=== PATIENT | female | born 1965 | race Caucasian/White ===

== ENCOUNTER 2018-02-03 13:53 | Day surgery (SDC) | payer BC ==
[~2018-02-03 13:53] MED LIST: Midazolam 1 MG/ML 2 ML SDV ONE; Propofol 200 MG/20 ML SDV ONE; fentaNYL 100 MCG/2 ML SDV ONE
[2018-02-03] MEDS ORDERED: Sodium Chloride 0.9% 5 ML Syringe FLUSH PRN (14:00)
[2018-02-03] MEDS ORDERED: Propofol 200 MG/20 ML SDV ONE (14:39)
[2018-02-03] MEDS ORDERED: Propofol 200 MG/20 ML SDV IV ONE (15:20)
[2018-02-03] MEDS ORDERED: Midazolam 1 MG/ML 2 ML SDV IV ONE (15:20)
[2018-02-03] MEDS: Lactated Ringers 1,000 ML IV SCH (15:20)
[2018-02-03] MEDS ORDERED: fentaNYL 100 MCG/2 ML SDV IV ONE (15:20)
--- NOTE | 2018-02-03 15:23 | PCM.PN ---
- General Info Date of Service: 02/03/18 - Review of Systems Systems Review Comment:: 52-year-old female referred for her initial screening colonoscopy. She is medically stable to proceed today. She denies any recent change in her health status or any recent bowel symptoms. I discussed the proposed colonoscopy with the patient. Risks such as but not limited to bleeding and GI injury reviewed. She appears to understand and agrees to proceed. - Patient Data Vitals - Most Recent: Last Vital Signs Temp 97.1 F 02/03/18 14:29 Pulse 71 02/03/18 14:29 Resp 16 02/03/18 14:29 BP 128/82 02/03/18 14:29 Pulse Ox 98 02/03/18 14:29 Weight - Most Recent: 70.76 kg Med Orders - Current: Current Medications Lactated Ringer's (Ringers, Lactated) 1,000 mls @ 50 mls/hr IV ASDIRECTED REJI Last Admin: 02/03/18 15:20 Dose: 50 mls/hr Sodium Chloride (Syrex Flush) 5 ml FLUSH Q8HR PRN PRN Reason: Keep Vein Open Discontinued Medications Fentanyl (Sublimaze) Confirm Administered Dose 100 mcg .ROUTE .STK-MED ONE Stop: 02/03/18 13:49 Midazolam HCl (Versed 1 Mg/Ml) Confirm Administered Dose 2 mg .ROUTE .STK-MED ONE Stop: 02/03/18 13:48 Propofol (Diprivan 20 Ml) Confirm Administered Dose 200 mg .ROUTE .STK-MED ONE Stop: 02/03/18 13:49 - Problem List Review Problem List Initiated/Reviewed/Updated: Yes - My Orders Last 24 Hours: My Active Orders 02/03/18 14:00 Peripheral IV Care [RC] . DIRECTED HCG QUALITATIVE,URINE [URCHEM] Routine Lactated Ringers [Ringers, Lactated] 1,000 ml IV ASDIRECTED Sodium Chloride 0.9% [Syrex Flush] 5 ml FLUSH Q8HR PRN Peripheral IV Insertion Adult [OM.PC] Routine 02/03/18 14:30 Patient to Empty Bladder [RC] ASDIRECTED 02/03/18 14:45 Verify Patient Consent Obtain [RC] ASDIRECTED 02/03/18 Breakfast Nothing Per Oral Diet [DIET] - Assessment Assessment:: Colon cancer screening - Plan Plan:: Colonoscopy
--- NOTE | 2018-02-03 15:58 | PCM.OPNOTE ---
- General Post-Op/Procedure Note Date of Surgery/Procedure: 02/03/18 Operative Procedure(s): Colonoscopy Findings: Normal Colon Pre Op Diagnosis: Colon Cancer Screening Post-Op Diagnosis: Normal Colon Anesthesia Technique: MAC Primary Surgeon: Trip Sapp Pathology: none Output, Urine Amount: 0 EBL in mLs: 0 Complications: None Condition: Good
[2018-02-03 16:59] VITALS: BP 112/69
--- NOTE | 2018-02-04 01:27 | OR ---
DATE OF SURGERY: 02/03/2018 SURGEON: Trip Sapp MD PREOPERATIVE DIAGNOSIS: Colon cancer screening. POSTOPERATIVE DIAGNOSIS: Normal colon. OPERATION PERFORMED: Colonoscopy. INDICATIONS FOR SURGERY: This 52-year-old female presents for her initial screening colonoscopy. She denies any recent change in bowel habits. FINDINGS: The patient's colon appears normal. No polyps or other abnormalities were seen. PROCEDURE: The patient was taken to the operating room. She was given intravenous sedation, and with her in the left lateral decubitus position, digital rectal exam was performed showing the rectal masses. The Olympus colonoscope was inserted into the rectum. Retroflexed examination of the rectal canal was performed. The scope was then carefully advanced under direct visualization through the entire length of the colon until cecum was reached. Cecal acquisition was confirmed by noting the normal internal cecal anatomy including the appendiceal orifice and ileocecal valve. The light was noted to transilluminate the abdominal wall in the right lower quadrant as well. The ileocecal valve was cannulated and the terminal ileum was examined and it also appeared normal. The scope was then slowly withdrawn, sequentially re-examining the colonic segments until the entire colon and rectum had been fully examined. The scope was removed and the patient was taken from the operating room in satisfactory condition. ESTIMATED BLOOD LOSS: Zero. COMPLICATIONS: None. PROGNOSIS: Good. /[id number]/MODL
== END 2018-02-03 16:55 | disposition home or self-care (01) ==
LOC: KA.SDS 13:53
PROVIDERS: ATTEND Surgery
DX: Z12.11 Encounter for screening for malignant neoplasm of colon (principal); H61.23 Impacted cerumen, bilateral; E04.9 Nontoxic goiter, unspecified; K52.9 Noninfective gastroenteritis and colitis, unspecified; K64.9 Unspecified hemorrhoids; I10 Essential (primary) hypertension; Z79.899 Other long term (current) drug therapy; Z98.890 Other specified postprocedural states; Z87.891 Personal history of nicotine dependence
CPT/HCPCS: J2250; J2704; J3010; J7120

== ENCOUNTER 2019-03-09 05:10 | Inpatient (IN) | payer BC ==
[2019-03-09] MEDS: Sodium Chloride 0.9% 1,000 ML IV ONE (05:23)
[2019-03-09] MEDS: Ondansetron 4 MG/2 ML SDV IVPUSH ONE (05:25)
--- NOTE | 2019-03-09 05:34 | EDM.PDOC ---
ED HPI GENERAL MEDICAL PROBLEM - General Chief Complaint: Gastrointestinal Problem Stated Complaint: n/v/d Time Seen by Provider: 03/09/19 05:20 Source of Information: Reports: Patient History Limitations: Reports: No Limitations - History of Present Illness INITIAL COMMENTS - FREE TEXT/NARRATIVE: 53 YO WF presents to ER with nausea/vomiting/diarrhea which began 3 hours ago. Pt reports she woke and felt nauseated followed by profuse watery stools. Pt reports she continued to have intractable diarrhea and felt weak prompting her ER visit. Pt denies fever/chills or abdominal pain. Pt reports a mild burning sensation at her epigastrium but denies shortness of breath, diaphoresis or syncope. Pt reports she was recently on a course of penicillin for a dental extraction and a course of cipro for a recent UTI. Both courses of antibiotics were taken within the last 3-4 weeks. Onset: Today Onset Date: 03/09/19 Onset Time: 02:30 Location: Reports: Abdomen Quality: Reports: Burning Severity: Mild Improves with: Reports: None Worsens with: Reports: None Associated Symptoms: Reports: Malaise, Nausea/Vomiting, Weakness. Denies: Chest Pain, Diaphoresis, Fever/Chills, Headaches, Shortness of Breath, Syncope - Related Data Allergies Allergy/AdvReac Type Severity Reaction Status Date / Time No Known Drug Allergies Allergy Other Verified 03/09/19 05:45 Home Meds: Home Meds Calcium Carbonate [Calcium] 600 mg PO BID 01/28/18 [History] Cholecalciferol (Vitamin D3) [Vitamin D3] 1 cap PO DAILY 01/28/18 [History] Lisinopril/Hydrochlorothiazide [Lisinopril-Hctz 20-25 mg Tab] 1 tab PO DAILY 06/09 [History] Past Medical History Cardiovascular History: Reports: Hypertension Gastrointestinal History: Reports: Helicobacter Pylori Genitourinary History: Reports: UTI, Recurrent 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: Reports: - Past Surgical History Other Female Surgeries/Procedures: Lumpectomy to left breast Social & Family History - Family History Cardiac: Reports: High Cholesterol, Hypertension, OR Respiratory: Reports: Asthma : Reports: None OBGYN: Reports: None Musculoskeletal: Reports: None Neurological: Reports: CVA Oncologic: Reports: Brain, Esophageal - Caffeine Use Caffeine Use: Reports: Coffee ED ROS GENERAL - Review of Systems Review Of Systems: See Below Constitutional: Reports: Malaise, Weakness, Fatigue HEENT: Reports: No Symptoms Respiratory: Reports: No Symptoms Cardiovascular: Reports: No Symptoms Endocrine: Reports: No Symptoms GI/Abdominal: Reports: Abdominal Pain, Anorexia, Diarrhea, Nausea, Vomiting : Denies: Dysuria, Flank Pain, Frequency, Hematuria, Urgency Musculoskeletal: Reports: No Symptoms Skin: Reports: Pallor, Dryness Neurological: Reports: No Symptoms Psychiatric: Reports: No Symptoms Hematologic/Lymphatic: Reports: No Symptoms Immunologic: Reports: No Symptoms ED EXAM, GI/ABD - Physical Exam Exam: See Below Exam Limited By: No Limitations General Appearance: Alert, WD/WN, No Apparent Distress Throat/Mouth: Normal Inspection, Normal Lips, Normal Teeth, Normal Gums, Normal Oropharynx, Normal Voice, No Airway Compromise Head: Atraumatic, Normocephalic Neck: Normal Inspection, Supple, Non-Tender, Full Range of Motion Respiratory/Chest: No Respiratory Distress, Lungs Clear, Normal Breath Sounds, No Accessory Muscle Use, Chest Non-Tender Cardiovascular: Normal Peripheral Pulses, Regular Rate, Rhythm, No Edema, No Gallop, No JVD, No Murmur, No Rub GI/Abdominal Exam: Normal Bowel Sounds, Soft, Non-Tender, No Organomegaly, No Distention, No Abnormal Bruit, No Mass Back Exam: Normal Inspection, Full Range of Motion, NT Extremities: Normal Inspection, Normal Range of Motion, Non-Tender, Normal Capillary Refill, No Pedal Edema Neurological: Alert, Oriented, CN II-XII Intact, Normal Cognition, Normal Gait, Normal Reflexes, No Motor/Sensory Deficits Psychiatric: Normal Affect, Normal Mood Skin Exam: Warm, Dry, Intact, Normal Color, No Rash Lymphatic: No Adenopathy EKG INTERPRETATION EKG Date: 03/09/19 Time: 05:51 Rhythm: NSR Rate (Beats/Min): 66 [place]: Normal P-Wave: Present QRS: Normal ST-T: Normal QT: Prolonged Comparison: NA - No Prior EKG Course - Vital Signs Last Recorded V/S: Last Vital Signs Temp 36.3 C 03/09/19 05:15 Pulse 66 03/09/19 05:45 Resp 18 03/09/19 05:45 BP 98/60 03/09/19 05:45 Pulse Ox 94 L 03/09/19 05:45 - Orders/Labs/Meds Orders: Active Orders 24 hr Category Date Time Status Abdomen Pelvis w Cont [CT] Stat Exams 03/09/19 06:05 Ordered Clostridium Difficile [CDIFF TOX A+B] [OP] Stat Lab 03/09/19 05:35 Ordered OVA & PARASITES BY IMMUNOASSAY [MREF] Stat Lab 03/09/19 06:20 Ordered STOOL CULTURE/SHIGA TOXIN [MREF] Stat Lab 03/09/19 06:20 Ordered URINALYSIS W/MICROSCOPIC [UA W/MICROSCOPIC] [URIN] Stat Lab 03/09/19 05:34 Ordered WBC, STOOL [OP] Stat Lab 03/09/19 06:20 Ordered Sodium Chloride 0.9% with KCl [Normal Saline with 40 Med 03/09/19 06:30 Ordered mEq KCl] 1,000 ml IV ASDIRECTED Isolation [COMM] Routine Oth 03/09/19 06:34 Ordered EKG 12 Lead [EK] Routine Ther 03/09/19 05:37 Ordered Medication Orders Potassium Chloride/Sodium Chloride (Normal Saline With 40 Meq Kcl) 1,000 mls @ 125 mls/hr IV ASDIRECTED REJI Labs: Laboratory Tests 03/09/19 03/09/19 Range/Units 05:25 05:25 WBC 18.58 H D (5.00-10.00) 10^3/uL RBC 5.31 (3.80-5.50) 10^6/uL Hgb 16.2 H (12.0-16.0) g/dL Hct 45.2 (37.0-47.0) % MCV 85.1 (82.0-92.0) fL MCH 30.5 (27.0-31.0) pg MCHC 35.8 (32.0-36.0) g/dL RDW 12.7 (11.5-14.5) % Plt Count 322 (150-400) 10^3/uL MPV 9.7 (7.4-10.4) fL Immature Gran % (Auto) 0.2 (0.0-5.0) % Neut % (Auto) 79.4 H (50.0-70.0) % Lymph % (Auto) 12.9 L (20.0-40.0) % [place] % (Auto) 6.6 (2.0-8.0) % Eos % (Auto) 0.8 L (1.0-3.0) % Baso % (Auto) 0.1 (0.0-1.0) % Immature Gran # (Auto) 0.04 (0.00-0.50) 10^3/uL Neut # (Auto) 14.76 H (2.50-7.00) 10^3/uL Lymph # (Auto) 2.40 (1.00-4.00) 10^3/uL [place] # (Auto) 1.22 H (0.10-0.80) 10^3/uL Eos # (Auto) 0.14 (0.10-0.30) 10^3/uL Baso # (Auto) 0.02 (0.00-0.10) 10^3/uL Sodium 140 (136-145) mmol/L Potassium 2.6 L (3.3-5.3) mmol/L Chloride 102 (98-115) mmol/L Carbon Dioxide 22.4 (21.0-32.0) mmol/L Anion Gap 18.2 H (5-15) mmol/L BUN 23 (6-25) mg/dL Creatinine 0.64 (0.51-1.17) mg/dL Est Cr Clr Drug Dosing 96.58 mL/min Estimated GFR (MDRD) > 60 mL/min Glucose 173 H (75 - 99) mg/dL Calcium 9.9 (8.7-10.3) mg/dL Magnesium 2.2 (1.8-2.4) mg/dL Total Bilirubin 0.7 (0.2-1.0) mg/dL AST 26 (15-37) U/L ALT 28 (12-78) U/L Alkaline Phosphatase 65 (46-116) IU/L Total Protein 7.9 (6.4-8.2) g/dL Albumin 4.17 (3.00-4.80) g/dL Lipase 176 (73-393) U/L Meds: Medications Generic Name Dose Route Start Last Admin Trade Name Freq PRN Reason Stop Dose Admin Potassium Chloride/Sodium Chloride 1,000 mls @ 125 mls/hr 03/09/19 06:30 Normal Saline With 40 Meq Kcl IV ASDIRECTED REJI Discontinued Medications Generic Name Dose Route Start Last Admin Trade Name Freq PRN Reason Stop Dose Admin Sodium Chloride Confirm 03/09/19 05:23 03/09/19 05:49 Normal Saline Administered 03/09/19 05:24 Not Given Dose 1,000 mls @ as directed .ROUTE .STK-MED ONE Sodium Chloride 1,000 mls @ 999 mls/hr 03/09/19 05:20 03/09/19 05:23 Normal Saline IV 03/09/19 06:20 999 mls/hr .BOLUS ONE Administration Ondansetron HCl Confirm 03/09/19 05:23 03/09/19 05:49 Zofran Administered 03/09/19 05:24 Not Given Dose 4 mg .ROUTE .STK-MED ONE Ondansetron HCl 4 mg 03/09/19 05:20 03/09/19 05:25 Zofran IVPUSH 03/09/19 05:21 4 mg ONETIME ONE Administration Departure - Departure Time of Disposition: 06:40 Disposition: Admitted As Inpatient 64 Condition: Serious Clinical Impression: Gastroenteritis, Hypokalemia due to loss of potassium, Dehydration Leukocytosis Qualifiers: Leukocytosis type: unspecified Qualified Code(s): D72.829 - Elevated white blood cell count, unspecified - Discharge Information Forms: ED Department Discharge Additional Instructions: 1. Admit to Dr Josephine Gilbert 2. NS with 40Kmeq @125cc/hr 3. Zofran 4mg IV 4. await CT results, stool panel, UA- pending 5. Antibiotics PRN per Dr Gilbert 6. Supportive care - My Orders Last 24 Hours: My Active Orders 03/09/19 05:34 URINALYSIS W/MICROSCOPIC [UA W/MICROSCOPIC] [URIN] Stat 03/09/19 05:35 Clostridium Difficile [CDIFF TOX A+B] [OP] Stat 03/09/19 05:37 EKG 12 Lead [EK] Routine 03/09/19 06:05 Abdomen Pelvis w Cont [CT] Stat 03/09/19 06:20 OVA & PARASITES BY IMMUNOASSAY [MREF] Stat STOOL CULTURE/SHIGA TOXIN [MREF] Stat WBC, STOOL [OP] Stat 03/09/19 06:30 Sodium Chloride 0.9% with KCl [Normal Saline with 40 mEq KCl] 1,000 ml IV ASDIRECTED 03/09/19 06:34 Isolation [COMM] Routine - Assessment/Plan Last 24 Hours: My Active Orders 03/09/19 05:34 URINALYSIS W/MICROSCOPIC [UA W/MICROSCOPIC] [URIN] Stat 03/09/19 05:35 Clostridium Difficile [CDIFF TOX A+B] [OP] Stat 03/09/19 05:37 EKG 12 Lead [EK] Routine 03/09/19 06:05 Abdomen Pelvis w Cont [CT] Stat 03/09/19 06:20 OVA & PARASITES BY IMMUNOASSAY [MREF] Stat STOOL CULTURE/SHIGA TOXIN [MREF] Stat WBC, STOOL [OP] Stat 03/09/19 06:30 Sodium Chloride 0.9% with KCl [Normal Saline with 40 mEq KCl] 1,000 ml IV ASDIRECTED 03/09/19 06:34 Isolation [COMM] Routine Assessment:: 1. Hypokalemia 2. Dehydration 3. Prolonged QT 4. Possible Infectious diarrhea 5. Leukocytosis 6. Gastroenteritis Plan: 1. Admit to Dr Josephine Gilbert 2. NS with 40Kmeq @125cc/hr 3. Zofran 4mg IV 4. await CT results, stool panel, UA- pending 5. Antibiotics PRN per Dr Gilbert 6. Supportive care
[2019-03-09] MEDS: Ondansetron 4 MG/2 ML SDV ONE (05:49)
[2019-03-09] MEDS: Sodium Chloride 0.9% 1,000 ML ONE (05:49)
[2019-03-09 06:19] LABS: ANION GAP 18.2 mmol/L (5-15); CHLORIDE,CL 102 mmol/L (98-115); SODIUM,NA 140 mmol/L (136-145)
[2019-03-09] MEDS ORDERED: Ondansetron 4 MG/2 ML SDV IV PRN (06:44)
[2019-03-09] MEDS: Sodium Chloride 0.9% with KCl 1,000 ML IV SCH (07:30)
--- NOTE | 2019-03-09 08:04 | CT ---
[id number] CT/CT Abdomen Pelvis W IV EXAM: CT Abdomen Pelvis W IV CLINICAL DATA: ABDOMINAL PAIN. COMPARISON STUDY: June 01, 2018. FINDINGS: Small subcentimeter hypodensities scattered throughout the liver nonspecific and too small to characterize. Liver is otherwise unremarkable. Subtle area of hypoenhancement in the superior aspect of the right kidney. This measures approximately 14 mm in diameter (series 2 image 56, series 4 image 42, and series 5 image 94). No evidence of urinary tract obstruction. Urinary bladder is unremarkable. No bowel obstruction or inflammation. Appendix is normal. No lymphadenopathy, free fluid, or pneumoperitoneum. Uterus and adnexal regions are unremarkable. Scattered changes of mild spondylosis in the spine. No fracture or osseous lesion. IMPRESSION: Small focal area of hypoenhancement in the right kidney. Finding is nonspecific. Correlate with UA for evidence of pyelonephritis or urinary tract infection. Otherwise, no significant abnormality in the abdomen or pelvis. Buddy Marquez MD 03/09/19 0803 Thank you for allowing us to participate in the care of your patient.
[2019-03-09] MEDS ORDERED: Iopamidol 612 MG/ML 100 ML Bottle IVPUSH ONE (08:59)
[2019-03-09] MEDS ORDERED: Sodium Chloride 0.9% 50 ML IV SCH (09:00)
[2019-03-09] MEDS: Iopamidol 612 MG/ML 100 ML Bottle IVPUSH ONE (09:06)
[2019-03-09] MEDS: Sodium Chloride 0.9% 50 ML IV SCH (09:10)
--- NOTE | 2019-03-09 15:39 | PCM.PN ---
- General Info Date of Service: 03/09/19 Admission Dx/Problem (Free Text): Vomiting and diarrhea. - Review of Systems Systems Review Comment:: Radha was admitted earlier this morning with abrupt onset of vomiting and diarrhea. She states that on 03/08/19 it was a normal day. Around 3PM she had a cup of coffee that "didn't sit very well with me" but she was feeling better by supper and had a salad and some breadsticks for supper. No food she ate throughout the day was questionable. No recent travel. She states when she went to bed her stomach "hurt" a little bit "I thought it was just acid". She woke up at 0230 on 03/09 and had a bad taste in her mouth so tried to drink some water and then got nauseated and vomited. She then promptly got diarrhea, watery and at the end "almost clear". She kept trying to drink water to stay hydrated but she kept vomiting that up, although her emesis amount was small. She was sitting on her toilet and felt like she was going to pass out and so she called to her and he suggested calling EMS but she said tole him to just wait for a bit, then she recalls waking up and him over her in the bathroom stating she had fainted. At that time she agreed to go to the ER for further evaluation. She arrived by private vehicle. Labs showed a WBC of 18 with a left shift, 80% neutrophils. Potassium was low at 2.9, UA with positive ketones but negative for infection. Of note, she has been on PCN this past month for a dental infection as well as ciprofloxacin for a urine infection. There was concern about C. diff. She was given IVF's and zofran in the ER and this helped her symptoms. She had 3-4 episodes of diarrhea at home but nothing had come in the hospital. She was admitted around 0630. She had normal saline with 40 mEq of KCl in the fluids running at 125 cc per hour but her vein hurt and so this was decreased to 100 cc per hour. She has no nausea. She had one small loose stool that "I had to work at getting out" to get for a stool sample. This was negative for C. diff. She tolerated toast earlier this morning and she would like to try more for supper. Will D/C telemetry, this was started for prolonged QT seen in the ER but she has had no events. Will D/C isolation as C. diff is negative. Will change diet to a BRAT diet. Anticipate discharge to home tomorrow. This is most consistent with an abrupt onset of a viral gastroenteritis that is self limited. - Patient Data Vitals - Most Recent: Last Vital Signs Temp 97.8 F 03/09/19 11:00 Pulse 75 03/09/19 11:00 Resp 16 03/09/19 11:00 BP 107/71 03/09/19 11:00 Pulse Ox 96 03/09/19 11:00 Weight - Most Recent: 161 lb 4.8 oz I&O - Last 24 Hours: Intake & Output 03/09/19 03/09/19 03/09/19 06:59 14:59 22:59 Intake Total 920 Balance 920 Lab Results Last 24 Hours: Laboratory Results - last 24 hr 03/09/19 03/09/19 03/09/19 Range/Units 05:25 05:25 06:55 WBC 18.58 H D (5.00-10.00) 10^3/uL RBC 5.31 (3.80-5.50) 10^6/uL Hgb 16.2 H (12.0-16.0) g/dL Hct 45.2 (37.0-47.0) % MCV 85.1 (82.0-92.0) fL MCH 30.5 (27.0-31.0) pg MCHC 35.8 (32.0-36.0) g/dL RDW 12.7 (11.5-14.5) % Plt Count 322 (150-400) 10^3/uL MPV 9.7 (7.4-10.4) fL Immature Gran % (Auto) 0.2 (0.0-5.0) % Neut % (Auto) 79.4 H (50.0-70.0) % Lymph % (Auto) 12.9 L (20.0-40.0) % [place] % (Auto) 6.6 (2.0-8.0) % Eos % (Auto) 0.8 L (1.0-3.0) % Baso % (Auto) 0.1 (0.0-1.0) % Immature Gran # (Auto) 0.04 (0.00-0.50) 10^3/uL Neut # (Auto) 14.76 H (2.50-7.00) 10^3/uL Lymph # (Auto) 2.40 (1.00-4.00) 10^3/uL [place] # (Auto) 1.22 H (0.10-0.80) 10^3/uL Eos # (Auto) 0.14 (0.10-0.30) 10^3/uL Baso # (Auto) 0.02 (0.00-0.10) 10^3/uL Sodium 140 (136-145) mmol/L Potassium 2.6 L (3.3-5.3) mmol/L Chloride 102 (98-115) mmol/L Carbon Dioxide 22.4 (21.0-32.0) mmol/L Anion Gap 18.2 H (5-15) mmol/L BUN 23 (6-25) mg/dL Creatinine 0.64 (0.51-1.17) mg/dL Est Cr Clr Drug Dosing 96.58 mL/min Estimated GFR (MDRD) > 60 mL/min Glucose 173 H (75 - 99) mg/dL Calcium 9.9 (8.7-10.3) mg/dL Magnesium 2.2 (1.8-2.4) mg/dL Total Bilirubin 0.7 (0.2-1.0) mg/dL AST 26 (15-37) U/L ALT 28 (12-78) U/L Alkaline Phosphatase 65 (46-116) IU/L Total Protein 7.9 (6.4-8.2) g/dL Albumin 4.17 (3.00-4.80) g/dL Lipase 176 (73-393) U/L Specimen Type Urinvoid Urine Color Yellow (YELLOW) Urine Appearance Slightly cloudy H (CLEAR) Urine pH 6.0 (5.0-9.0) Ur Specific [place] >= 1.030 (1.005-1.030) Urine Protein 100 H (NEGATIVE) mg/dL Urine Glucose (UA) Negative (NEGATIVE) mg/dL Urine Ketones 15 H (NEGATIVE) mg/dL Urine Occult Blood Trace-lysed H (NEGATIVE) Urine Nitrite Negative (NEGATIVE) Urine Bilirubin Small H (NEGATIVE) Urine Urobilinogen 0.2 (0.2-1.0) E.U./dL Ur Leukocyte Esterase Negative (NEGATIVE) Urine RBC 0-5 (0-5) /HPF Urine WBC 5-10 H (0-5) /HPF Ur Epithelial Cells Few /LPF Urine Bacteria Few (NONE TO FEW) /HPF Hyaline Casts Few H (NEGATIVE) /LPF Urine Mucus Moderate H (NEGATIVE) /LPF [place] Results Last 24 Hours: Microbiology 03/09/19 12:45 Clostridium difficile Toxin A & B - Final Stool / Feces NEGATIVE CDIFF TOXIN REFERENCE RANGE: NEGATIVE 03/09/19 12:45 Stool for WBCs - Final Stool / Feces NO WBC SEEN REFERENCE RANGE: NO WBC SEEN Med Orders - Current: Current Medications Acetaminophen (Tylenol) 650 mg PO Q4H PRN PRN Reason: Pain (Mild 1-3)/fever Potassium Chloride/Sodium Chloride (Normal Saline With 40 Meq Kcl) 1,000 mls @ 125 mls/hr IV ASDIRECTED [facility] Last Infusion: 03/09/19 10:58 Dose: 100 mls/hr Sodium Chloride (Normal Saline) 50 mls @ 200 mls/min IV ASDIRECTED [facility] Last Admin: 03/09/19 09:10 Dose: 200 mls/min Ondansetron HCl (Zofran) 4 mg IV Q4H PRN PRN Reason: Nausea/Vomiting Discontinued Medications Sodium Chloride (Normal Saline) Confirm Administered Dose 1,000 mls @ as directed .ROUTE .STK-MED ONE Stop: 03/09/19 05:24 Last Admin: 03/09/19 05:49 Dose: Not Given Sodium Chloride (Normal Saline) 1,000 mls @ 999 mls/hr IV .BOLUS ONE Stop: 03/09/19 06:20 Last Admin: 03/09/19 05:23 Dose: 999 mls/hr Iopamidol (Isovue-300 (61%)) 100 ml IVPUSH ONETIME ONE Stop: 03/09/19 07:00 Last Admin: 03/09/19 09:06 Dose: 75 ml Ondansetron HCl (Zofran) Confirm Administered Dose 4 mg .ROUTE .STK-MED ONE Stop: 03/09/19 05:24 Last Admin: 03/09/19 05:49 Dose: Not Given Ondansetron HCl (Zofran) 4 mg IVPUSH ONETIME ONE Stop: 03/09/19 05:21 Last Admin: 03/09/19 05:25 Dose: 4 mg - Exam General: Alert, Oriented, Cooperative, No Acute Distress Lungs: Clear to Auscultation, Normal Respiratory Effort Cardiovascular: Regular Rate, Regular Rhythm, No Murmurs GI/Abdominal Exam: Normal Bowel Sounds - Problem List & Annotations (1) Vomiting and diarrhea SNOMED Code(s): 468517750 Code(s): R11.10 - VOMITING, UNSPECIFIED; R19.7 - DIARRHEA, UNSPECIFIED Status: Acute Current Visit: Yes (2) Hypotension due to hypovolemia SNOMED Code(s): 93682445 Code(s): I95.89 - OTHER HYPOTENSION; E86.1 - HYPOVOLEMIA Status: Acute Current Visit: Yes (3) Dehydration SNOMED Code(s): 61087311 Code(s): E86.0 - DEHYDRATION Status: Acute Current Visit: No (4) Gastroenteritis SNOMED Code(s): 73521536 Code(s): K52.9 - NONINFECTIVE GASTROENTERITIS AND COLITIS, UNSPECIFIED Status: Acute Current Visit: No (5) Hypokalemia due to loss of potassium SNOMED Code(s): 35285369 Code(s): E87.6 - HYPOKALEMIA Status: Acute Current Visit: No (6) Leukocytosis SNOMED Code(s): 997693230, 873841108 Code(s): D72.829 - ELEVATED WHITE BLOOD CELL COUNT, UNSPECIFIED Status: Acute Current Visit: No Qualifiers: Leukocytosis type: unspecified Qualified Code(s): D72.829 - Elevated white blood cell count, unspecified - Problem List Review Problem List Initiated/Reviewed/Updated: Yes - My Orders Last 24 Hours: My Active Orders 03/09/19 13:36 Cardiac Monitoring Discontinue [RC] Click to Edit 03/09/19 Dinner BRAT Diet [DIET] - Assessment Assessment:: See HPI - Plan Plan:: See HPI
[2019-03-09] MEDS: Acetaminophen 325 MG Tab PO PRN (17:04)
[2019-03-09] MEDS: Melatonin 3 MG Tab PO PRN (21:51)
[2019-03-10 06:10] VITALS: BP 122/72
[2019-03-10 07:47] LABS: ANION GAP 12.2 mmol/L (5-15); CHLORIDE,CL 110 mmol/L (98-115); SODIUM,NA 144 mmol/L (136-145)
--- NOTE | 2019-03-10 09:22 | PCM.DCSUM1 ---
Discharge Summary - Hospital Course Free Text/Narrative:: Radha was admitted on 03/09/19 with abrupt onset of vomiting and diarrhea. She states that on 03/08/19 it was a normal day. Around 3PM she had a cup of coffee that "didn't sit very well with me" but she was feeling better by supper and had a salad and some breadsticks for supper. No food she ate throughout the day was questionable. No recent travel. She states when she went to bed her stomach "hurt" a little bit "I thought it was just acid". She woke up at 0230 on 03/09 and had a bad taste in her mouth so tried to drink some water and then got nauseated and vomited. She then promptly got diarrhea, watery and at the end "almost clear". She kept trying to drink water to stay hydrated but she kept vomiting that up, although her emesis amount was small. She was sitting on her toilet and felt like she was going to pass out and so she called to her and he suggested calling EMS but she said tole him to just wait for a bit, then she recalls waking up and him over her in the bathroom stating she had fainted. At that time she agreed to go to the ER for further evaluation. She arrived by private vehicle. Labs showed a WBC of 18 with a left shift, 80% neutrophils. Potassium was low at 2.9, UA with positive ketones but negative for infection. Of note, she has been on PCN this past month for a dental infection as well as ciprofloxacin for a urine infection. There was concern about C. diff. She was given IVF's and zofran in the ER and this helped her symptoms. She had 3-4 episodes of diarrhea at home but nothing had come in the hospital. She was admitted around 0630 on 03/09. She had normal saline with 40 mEq of KCl in the fluids running at 125 cc per hour but her vein hurt and so this was decreased to 100 cc per hour. She has no nausea. She had one small loose stool that "I had to work at getting out" to get for a stool sample. This was negative for C. diff. She had her potassium rechecked at 5PM on 03/09 and it was up to 4.8. IVF's were discontinued as she was drinking normally and was no longer nauseated. She was initially hypotensive in the ER but this improved after IVF's. She has had no nausea or vomiting since admission. She has tolerated the BRAT diet. She has had no BM since her small one to leave for the stool sample on . She feels ready for discharge. Admission Diagnoses: Vomiting and Diarrhea Hypokalemia Hypotension Neutrophilic Leukocytosis Discharge Diagnoses: Vomiting and Diarrhea, most consistent with viral gastroenteritis, C. Diff ruled out. Hypokalemia. Resolved. Hypotension. Resolved. Neutrophilic Leukocytosis, resolved, most likely related to acute vomiting and hemoconcentration. Diagnosis: Stroke: No Modified Cecil Scale: No Symptoms at All Modified Cecil Scale Score: 0 - Discharge Data Discharge Date: 03/10/19 Discharge Disposition: Home, Self-Care 01 Condition: Good - Discharge Diagnosis/Problem(s) (1) Vomiting and diarrhea SNOMED Code(s): 621296379 ICD Code: R11.10 - VOMITING, UNSPECIFIED; R19.7 - DIARRHEA, UNSPECIFIED Status: Acute Current Visit: Yes (2) Hypotension due to hypovolemia SNOMED Code(s): 20489078 ICD Code: I95.89 - OTHER HYPOTENSION; E86.1 - HYPOVOLEMIA Status: Acute Current Visit: Yes (3) Dehydration SNOMED Code(s): 09870698 ICD Code: E86.0 - DEHYDRATION Status: Acute Current Visit: No (4) Gastroenteritis SNOMED Code(s): 10821415 ICD Code: K52.9 - NONINFECTIVE GASTROENTERITIS AND COLITIS, UNSPECIFIED Status: Acute Current Visit: No (5) Hypokalemia due to loss of potassium SNOMED Code(s): 59523845 ICD Code: E87.6 - HYPOKALEMIA Status: Acute Current Visit: No (6) Leukocytosis SNOMED Code(s): 415279589, 767633801 ICD Code: D72.829 - ELEVATED WHITE BLOOD CELL COUNT, UNSPECIFIED Status: Acute Current Visit: No Qualifiers: Leukocytosis type: unspecified Qualified Code(s): D72.829 - Elevated white blood cell count, unspecified - Patient Instructions Diet: Regular Diet as Tolerated Activity: As Tolerated - Discharge Plan *PRESCRIPTION DRUG MONITORING PROGRAM REVIEWED*: Not Applicable *COPY OF PRESCRIPTION DRUG MONITORING REPORT IN PATIENT ZAKI: Not Applicable Home Medications: Home Meds Calcium Carbonate [Calcium] 600 mg PO BID 01/28/18 [History] Cholecalciferol (Vitamin D3) [Vitamin D3] 1 cap PO DAILY 01/28/18 [History] Lisinopril/Hydrochlorothiazide [Lisinopril-Hctz 20-25 mg Tab] 1 tab PO DAILY 06/09 [History] Forms: ED Department Discharge - Discharge Summary/Plan Comment DC Time >30 min.: No - General Info Date of Service: 03/10/19 - Patient Data Vitals - Most Recent: Last Vital Signs Temp 98.4 F 03/10/19 06:09 Pulse 66 03/10/19 06:09 Resp 18 03/10/19 06:09 BP 122/72 03/10/19 06:09 Pulse Ox 98 03/10/19 08:55 Weight - Most Recent: 161 lb 4.8 oz I&O - Last 24 hours: Intake & Output 03/09/19 03/10/19 03/10/19 22:59 06:59 14:59 Intake Total 2000 450 Output Total 600 200 Balance 1400 250 Lab Results - Last 24 hrs: Laboratory Results - last 24 hr 03/09/19 03/10/19 03/10/19 Range/Units 17:00 07:15 07:15 WBC 5.40 D (5.00-10.00) 10^3/uL RBC 4.42 (3.80-5.50) 10^6/uL Hgb 13.0 D (12.0-16.0) g/dL Hct 38.6 (37.0-47.0) % MCV 87.3 (82.0-92.0) fL MCH 29.4 (27.0-31.0) pg MCHC 33.7 (32.0-36.0) g/dL RDW 13.0 (11.5-14.5) % Plt Count 251 (150-400) 10^3/uL MPV 9.5 (7.4-10.4) fL Immature Gran % (Auto) 0.0 (0.0-5.0) % Neut % (Auto) 56.5 (50.0-70.0) % Lymph % (Auto) 35.0 (20.0-40.0) % [place] % (Auto) 6.1 (2.0-8.0) % Eos % (Auto) 2.2 (1.0-3.0) % Baso % (Auto) 0.2 (0.0-1.0) % Immature Gran # (Auto) 0.00 (0.00-0.50) 10^3/uL Neut # (Auto) 3.05 (2.50-7.00) 10^3/uL Lymph # (Auto) 1.89 (1.00-4.00) 10^3/uL [place] # (Auto) 0.33 (0.10-0.80) 10^3/uL Eos # (Auto) 0.12 (0.10-0.30) 10^3/uL Baso # (Auto) 0.01 (0.00-0.10) 10^3/uL Sodium 144 (136-145) mmol/L Potassium 4.8 D 4.2 (3.3-5.3) mmol/L Chloride 110 (98-115) mmol/L Carbon Dioxide 26.0 (21.0-32.0) mmol/L Anion Gap 12.2 (5-15) mmol/L BUN 10 (6-25) mg/dL Creatinine 0.63 (0.51-1.17) mg/dL Est Cr Clr Drug Dosing 98.12 mL/min Estimated GFR (MDRD) > 60 mL/min Glucose 103 H (75 - 99) mg/dL Calcium 8.6 L (8.7-10.3) mg/dL BETTY Results - Last 24 hrs: Microbiology 03/09/19 12:45 Clostridium difficile Toxin A & B - Final Stool / Feces NEGATIVE CDIFF TOXIN REFERENCE RANGE: NEGATIVE 03/09/19 12:45 Stool for WBCs - Final Stool / Feces NO WBC SEEN REFERENCE RANGE: NO WBC SEEN Med Orders - Current: Current Medications Acetaminophen (Tylenol) 650 mg PO Q4H PRN PRN Reason: Pain (Mild 1-3)/fever Last Admin: 03/09/19 17:04 Dose: 650 mg Melatonin (Melatonin) 3 mg PO BEDTIME PRN PRN Reason: Insomnia Last Admin: 03/09/19 21:51 Dose: 3 mg Ondansetron HCl (Zofran) 4 mg IV Q4H PRN PRN Reason: Nausea/Vomiting Discontinued Medications Sodium Chloride (Normal Saline) Confirm Administered Dose 1,000 mls @ as directed .ROUTE .STK-MED ONE Stop: 03/09/19 05:24 Last Admin: 03/09/19 05:49 Dose: Not Given Sodium Chloride (Normal Saline) 1,000 mls @ 999 mls/hr IV .BOLUS ONE Stop: 03/09/19 06:20 Last Admin: 03/09/19 05:23 Dose: 999 mls/hr Potassium Chloride/Sodium Chloride (Normal Saline With 40 Meq Kcl) 1,000 mls @ 125 mls/hr IV ASDIRECTED REJI Last Infusion: 03/09/19 10:58 Dose: 100 mls/hr Sodium Chloride (Normal Saline) 50 mls @ 200 mls/min IV ASDIRECTED REJI Last Admin: 03/09/19 09:10 Dose: 200 mls/min Iopamidol (Isovue-300 (61%)) 100 ml IVPUSH ONETIME ONE Stop: 03/09/19 07:00 Last Admin: 03/09/19 09:06 Dose: 75 ml Ondansetron HCl (Zofran) Confirm Administered Dose 4 mg .ROUTE .STK-MED ONE Stop: 03/09/19 05:24 Last Admin: 03/09/19 05:49 Dose: Not Given Ondansetron HCl (Zofran) 4 mg IVPUSH ONETIME ONE Stop: 03/09/19 05:21 Last Admin: 03/09/19 05:25 Dose: 4 mg - Exam General: Reports: Alert, Oriented, Cooperative, No Acute Distress Lungs: Reports: Clear to Auscultation, Normal Respiratory Effort Cardiovascular: Reports: Regular Rate, Regular Rhythm GI/Abdominal Exam: Normal Bowel Sounds
== END 2019-03-10 10:22 | disposition home or self-care (01) | DRG 249 ==
LOC: KA.ED 05:10 → KA.MS 07:10
PROVIDERS: ADMIT Physician Assistant Medical; ATTEND Internal Medicine
DX: E86.0 Dehydration (principal); A08.4 Viral intestinal infection, unspecified; Z79.899 Other long term (current) drug therapy; I10 Essential (primary) hypertension; E87.6 Hypokalemia; I45.81 Long QT syndrome; I95.89 Other hypotension
CPT/HCPCS: 36415; 74177; 80048; 80053; 81001; 83690; 83735; 84132; 85025; 87045; 87046; 87324; 87328; 87329; 87899; 89055; 93005; 96361; 96374; 99285-25; A9270-GY; J2405; J3480; J7030; J7050; Q9967